=== PATIENT | female | born 1985 | race African-American/Black ===

== ENCOUNTER 2017-03-22 00:11 | Emergency (ER) | payer SELFPAY ==
[~2017-03-22] VITALS: Ht 182.9 cm; Wt 97.0 kg
[2017-03-22] MEDS ORDERED: SODIUM CHLORIDE 0.9% 1,000 ML IV ONE (00:23)
[2017-03-22] MEDS ORDERED: ONDANSETRON HCL 4MG/2ML VIAL IV ONE (00:30)
[2017-03-22 00:59] LABS: BASOPHILS % 0.9 % (0.0-2.0); EOSINOPHILS % 7.4 % (0.0-5.0); HEMATOCRIT. 37.3 % (36.0-48.0); HEMOGLOBIN. 12.5 g/dL (12.0-16.0); LYMPHOCYTES % 33.1 % (20.0-50.0); MEAN CORPUSCULAR HEMOGLOBIN 29.4 pg (28.0-32.0); MEAN CORPUSCULAR VOLUME 87.4 fL (81.0-99.0); MEAN PLATELET VOLUME 9.5 fl (7.4-10.4); MONOCYTES % 7.6 % (2.0-8.0); PLATELET 227 x1000/uL (130-400); RED BLOOD CELL COUNT 4.26 mill/uL (4.2-5.4); RED CELL DISTRIBUTION WIDTH 13.2 % (11.6-14.6)
[2017-03-22 01:04] LABS: CHLORIDE 103 mEq/L (98-107)
[2017-03-22 01:06] LABS: HCG SCREEN NEGATIVE
[2017-03-22 01:13] LABS: CARBON DIOXIDE 27 mEq/L (21-32); ETHANOL BLOOD < 10 mg/dL
[2017-03-22] MEDS ORDERED: SODIUM CHLORIDE 0.9% 1000ML BAG (SEPSIS BOLUS) IV ONE (02:30)
[2017-03-22 05:55] LABS: *AMPHETAMINES SCREEN URINE NEGATIVE (NEGATIVE); *BARBITURATES SCREEN URINE NEGATIVE (NEGATIVE); *BENZODIAZEPINES SCREEN URINE NEGATIVE (NEGATIVE); *COCAINE SCREEN URINE NEGATIVE (NEGATIVE); METHADONE URINE SCREEN NEGATIVE (NEGATIVE); OPIATES URINE SCREEN NEGATIVE (NEGATIVE); PHENCYCLIDINE URINE SCREEN NEGATIVE (NEGATIVE)
[2017-03-22 06:01] LABS: CANNABINOID URINE SCREEN PRESUMTIVE POSITIVE (NEGATIVE)
[2017-03-22 06:20] VITALS: BP 108/68
== END 2017-03-22 07:02 | disposition home or self-care (01) ==
LOC: ER 00:11
DX: F12.10 Cannabis abuse, uncomplicated (principal); R41.0 Disorientation, unspecified; J45.909 Unspecified asthma, uncomplicated
CPT/HCPCS: 36415; 80053; 80305; 80307; 80329; 84703; 85025; 96361; 96374; 99284; G0482; J2405; J7030; Z7610